=== PATIENT | male | born 2000 | race Caucasian/White ===

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

== ENCOUNTER 2018-02-24 15:31 | Emergency (ER) | payer OTHER, MEDICAID ==
[2018-02-24 16:06] VITALS: BP 114/71; PULSE 70; RESP 16; TEMP 98.6; O2SAT 99
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
== END 2018-02-24 17:24 | disposition home or self-care (01) ==
LOC: C.ER 15:31
DX: S16.1XXA Strain of muscle, fascia and tendon at neck level, initial encounter (principal); V49.40XA Driver injured in collision with unspecified motor vehicles in traffic accident, initial encounter
CPT/HCPCS: 96372; 99284; J1885